=== PATIENT | female | born 2000 | race Caucasian/White ===

== ENCOUNTER 2022-03-12 18:10 | Emergency (ER) | payer OTHER ==
[2022-03-12 19:44] LABS: BASO # 0.03 K/mm3 (0.02-0.10); EOS # 0.01 K/mm3 (0.04-0.40); EOS % 0.1 % (0.1-4.0); HEMATOCRIT 43.8 % (35.0-45.0); HEMOGLOBIN 15.3 g/dL (12.0-15.0); LYMPH# 1.27 K/mm3 (1.20-3.40); MEAN CELL VOLUME 87 fl (78-95); MEAN CORPUSCULAR HEMOGLOBIN 30 pg (26-32); MEAN CORPUSCULAR HGB CONC 35 g/dL (33-37); MEAN PLATELET VOLUME 10.6 fl (7.4-10.4); MONO # 0.43 K/mm3 (0.10-0.60); NEU # 8.22 K/mm3 (1.40-6.50); PLATELET COUNT 234 K/mm3 (130-400); RED BLOOD COUNT 5.03 M/mm3 (4.10-5.30); RED CELL DISTRIBUTION WIDTH 11.9 % (11.5-14.5)
[2022-03-12 20:08] LABS: ALBUMIN 4.1 g/dL (3.5-5.0); POTASSIUM 3.8 mmol/L (3.5-5.1)
[2022-03-12 20:09] LABS: CALCIUM 10.1 mg/dL (8.3-10.5)
[2022-03-12 20:12] LABS: TOTAL BILIRUBIN 0.3 mg/dL (0.2-1.2)
[2022-03-12 20:45] LABS: URINE APPEARANCE HAZY; URINE BILIRUBIN NEGATIVE (NEGATIVE); URINE BLOOD 50 ery/uL (NEGATIVE); URINE COLOR YELLOW; URINE GLUCOSE NEGATIVE (NEGATIVE); URINE KETONE NEGATIVE (NEGATIVE); URINE LEUKOCYTE ESTERASE 1+ (NEGATIVE); URINE NITRATE NEGATIVE (NEGATIVE); URINE PROTEIN(semi-quant) 1+ (NEGATIVE); URINE UROBILINOGEN NORMAL (NORMAL)
[2022-03-12 20:46] LABS: URINE MUCUS PRESENT (NOT PRESENT)
[2022-03-12] MEDS ORDERED: SEPTRA DS 8001 TAB PO (21:37)
[2022-03-12 21:40] VITALS: BP 109/83
== END 2022-03-12 21:40 | disposition home or self-care (01) ==
LOC: ED 18:10
PROVIDERS: Family Medicine
DX: R05.9 Cough, unspecified (principal)
CPT/HCPCS: J0696; J1885; J7030